=== PATIENT | male | born 2000 ===

== ENCOUNTER 2020-11-29 10:04 | Emergency (ER) | payer SELFPAY ==
[~2020-11-29] VITALS: Ht 182.9 cm; Wt 63.6 kg
[2020-11-29 10:17] VITALS: BP 128/75; Ht 182.9 cm; Wt 63.6 kg
[2020-11-29] MEDS ORDERED: ULTRAM50 MG PO (11:23)
== END 2020-11-29 11:44 | disposition home or self-care (01) ==
LOC: D.ER 10:04
DX: S93.401A Sprain of unspecified ligament of right ankle, initial encounter (principal); X58.XXXA Exposure to other specified factors, initial encounter